=== PATIENT | male | born 1980 | race Hispanic/Latino ===

== ENCOUNTER 2023-03-28 09:09 | Observation (INO) | payer BC ==
[~2023-03-28] VITALS: Ht 167.6 cm; Wt 66.2 kg
[2023-03-28] VITALS (13 sets, daily range): BP systolic 108–146; BP diastolic 63–95
[~2023-03-28 09:09] MED LIST: CIPROFLOXACN500 MG PO; LORTAB 5/3255 MG PO
[2023-03-28 09:31] LABS: BASO% 0.2 % (0-3); EOS% 0.7 % (0-8); HEMATOCRIT 51.4 % (39.0-50.0); HEMOGLOBIN 17.1 g/dl (14.0-18.0); IMMATURE GRANULOCYTES 0.2 % (0.0-5.0); LYMPH% 24.5 % (15-41); MEAN CELL VOLUME 93.6 fL CALC (80.0-100.0); MEAN CORPUSCULAR HGB 31.1 pG CALC (26.0-32.0); MEAN CORPUSCULAR HGB CONC 33.3 g/dL CAL (32.0-36.0); MONO% 8.1 % (2-13); NEUT# 6.56 thou/uL (1.82-7.42); NEUT% 66.3 % (42-76); RED BLOOD COUNT 5.49 mill/uL (4.70-6.10); RED CELL DISTRI WIDTH 13.1 % (11.5-15.5)
[2023-03-28 09:46] LABS: ALBUMIN 5.4 g/dL (3.2-5.0); ALKALINE PHOSPHATASE 83 u/l (38-126); ANION GAP 19 (6-22 (CALC)); BILIRUBIN, TOTAL 1.2 mg/dL (0.2-1.3); BUN 39 mg/dL (9-20); BUN/CREATININE RATIO 26 (12-20 (CALC)); CARBON DIOXIDE 26 mmol/l (22-30); CHLORIDE 92 mmol/l (95-108); CPK 1027 u/l (55-170); CREATININE 1.5 mg/dL (0.7-1.3); GFR FOR AFR.AMER. > 60 ML/MIN (>=60 (CALC)); GFR OTHER RACES 51 ML/MIN (>=60 (CALC)); POTASSIUM 4.2 mmol/l (3.5-5.1); SGOT/AST 67 u/l (17-59); SODIUM 133 mmol/l (137-146); TOTAL PROTEIN 8.7 g/dL (6.3-8.2)
[2023-03-28 09:46] LABS: URINE COLOR DK. YELLOW; URINE GLUCOSE - DIPSTICK 100 mg/dL (NEGATIVE); URINE KETONE Negative (NEGATIVE); URINE PH 5.5 (4.5-8.0); URINE PROTEIN - DIPSTICK 100 mg/dL (NEG-TRACE); URINE SPECIFIC GRAVITY >=1.030; URINE UROBILINOGEN - DIPSTICK 0.2 E.U./dL (0.2)
[2023-03-28 09:47] LABS: URINE BLOOD DIPSTICK LARGE (NEGATIVE); URINE LEUK ESTERASE NEGATIVE (NEGATIVE); URINE NITRITE - DIPSTICK NEGATIVE (Negative)
[2023-03-28 09:53] LABS: URINE BACTERIA MODERATE hpf; URINE HYALINE CAST MODERATE lpf (NONE-RARE); URINE WBC 0-2 WBC/hpf (0-5)
[2023-03-29 00:29] VITALS: BP 106/62
[2023-03-29 00:34] VITALS: BP 106/62
[2023-03-29 04:00] VITALS: BP 99/48
[2023-03-29 04:18] VITALS: BP 99/48
[2023-03-29 05:59] LABS: BASO% 0.3 % (0-3); IMMATURE GRANULOCYTES 0.3 % (0.0-5.0); LYMPH% 38.3 % (15-41); MEAN CELL VOLUME 98.3 fL CALC (80.0-100.0); MEAN CORPUSCULAR HGB 32.3 pG CALC (26.0-32.0); MEAN CORPUSCULAR HGB CONC 32.8 g/dL CAL (32.0-36.0); MONO% 9.6 % (2-13); NEUT# 3.46 thou/uL (1.82-7.42); NEUT% 49.5 % (42-76); RED CELL DISTRI WIDTH 13.3 % (11.5-15.5)
[2023-03-29 06:08] LABS: HEMATOCRIT 39.3 % (39.0-50.0); HEMOGLOBIN 12.9 g/dl (14.0-18.0)
[2023-03-29 06:31] LABS: ALKALINE PHOSPHATASE 53 u/l (38-126); BILIRUBIN, TOTAL 0.8 mg/dL (0.2-1.3); CARBON DIOXIDE 25 mmol/l (22-30); CPK 561 u/l (55-170); CREATININE 0.8 mg/dL (0.7-1.3); GFR FOR AFR.AMER. > 60 ML/MIN (>=60 (CALC)); GFR OTHER RACES > 60 ML/MIN (>=60 (CALC)); MAGNESIUM 2.2 mg/dL (1.6-2.3); POTASSIUM 4.4 mmol/l (3.5-5.1); SGOT/AST 45 u/l (17-59); SODIUM 136 mmol/l (137-146)
[2023-03-29 06:34] LABS: ALBUMIN 3.4 g/dL (3.2-5.0); ANION GAP 7 (6-22 (CALC)); BUN 17 mg/dL (9-20); BUN/CREATININE RATIO 21 (12-20 (CALC)); CHLORIDE 108 mmol/l (95-108); TOTAL PROTEIN 5.7 g/dL (6.3-8.2)
[2023-03-29 07:20] VITALS: BP 103/61
[2023-03-29 11:16] VITALS: BP 118/57
== END 2023-03-29 14:02 | disposition home or self-care (01) | DRG 558 ==
LOC: ED 09:09 → ED-I 10:02 → ED 11:52 → MS2 11:53
PROVIDERS: Family Medicine; Nurse Practitioner Family; ADMIT Student in an Organized Health Care Education/Training Program; ATTEND Student in an Organized Health Care Education/Training Program
DX: M62.82 Rhabdomyolysis (principal); N17.9 Acute kidney failure, unspecified; E86.0 Dehydration; Z87.891 Personal history of nicotine dependence
CPT/HCPCS: G0378